=== PATIENT | female | born 1995 | race Caucasian/White ===

== ENCOUNTER 2016-11-17 10:25 | Emergency (ER) | payer OTHER ==
[~2016-11-17] VITALS: Ht 157.5 cm; Wt 104.3 kg
[2016-11-17] MEDS ORDERED: HYDROcodone/APAP 5/325MG 1 TAB TABLET PO ONE (11:30)
[2016-11-17 11:41] VITALS: BP 127/70
--- NOTE | 2016-11-17 12:14 | RAD ---
CT of the head without contrast, 11/17/2016: History: Headache The ventricles are within normal limits in size. There is no shift of the midline structures. There is no evidence of acute intracranial hemorrhage or mass effect. IMPRESSION: No acute intracranial abnormality is detected. PQRS Compliance Statement: One or more of the following individualized dose reduction techniques were utilized for this examination: 1. Automated exposure control 2. Adjustment of the mA and/or kV according to patient size 3. Use of iterative reconstruction technique
[2016-11-17] MEDS ORDERED: IBUP-1060 PO (12:21)
--- NOTE | 2016-11-17 12:21 | PHYS DOC ---
Past Medical History Past Medical History: No Pertinent History Past Surgical History: Cholecystectomy Additional Past Surgical Histo: R WRIST SX Alcohol Use: None Drug Use: None Adult General Chief Complaint Chief Complaint: HEADACHE HPI HPI Patient is a 21 year old female presents the ED complaining of headache 4 days. Patient states she went to [place] 2 days ago was given some medicine for her headache and has had no improvement. States she took the medicine one time and has not taken anything today. Describes the pain as sharp. Rates the pain as 9 out of 10. Complains of nausea. Denies head injury, neck injury, LOC, vision changes, vomiting, weakness, chest pain, fever or shortness of breath. Review of Systems Review of Systems Constitutional: Denies fever or chills [] Eyes: Denies change in visual acuity, redness, or eye pain [] HENT: Denies nasal congestion or sore throat [] Respiratory: Denies cough or shortness of breath [] Cardiovascular: No additional information not addressed in HPI [] GI: Complains of nausea Denies abdominal pain, vomiting, bloody stools or diarrhea [] : Denies dysuria or hematuria [] Musculoskeletal: Denies back pain or joint pain [] Integument: Denies rash or skin lesions [] Neurologic: Complains of headache. Denies focal weakness or sensory changes [] Endocrine: Denies polyuria or polydipsia [] Current Medications Current Medications Current Medications Medications (Trade) Dose Ordered Sig/[facility] Start Time Stop Time Status Last Admin Dose Admin Acetaminophen/ Butalbital/ Caffeine (Fioricet) 1 tab 1X ONCE 11/17/16 13:00 11/17/16 13:00 DC 11/17/16 12:52 1 TAB Acetaminophen/ Hydrocodone Bitart (Lortab 5/325) 1 tab 1X ONCE 11/17/16 11:30 11/17/16 11:41 DC 11/17/16 11:49 1 TAB Allergies Allergies Allergies Coded Allergies Type Severity Reaction Last Updated Verified No Known Drug Allergies 11/17/16 No Physical Exam Physical Exam Constitutional: Well developed, well nourished, no acute distress, non-toxic appearance. [] HENT: Normocephalic, atraumatic, bilateral external ears normal, oropharynx moist, no oral exudates, nose normal. [] Eyes: PERRLA, EOMI, conjunctiva normal, no discharge. [] Neck: Normal range of motion, no tenderness, supple, no stridor. [] Cardiovascular:Heart rate regular rhythm, no murmur [] Lungs & Thorax: Bilateral breath sounds clear to auscultation [] Abdomen: Bowel sounds normal, soft, no tenderness, no masses, no pulsatile masses. [] Skin: Warm, dry, no erythema, no rash. [] Back: No tenderness, no CVA tenderness. [] Extremities: No tenderness, no cyanosis, no clubbing, ROM intact, no edema. [] Neurologic: Alert and oriented X 3, normal motor function, normal sensory function, no focal deficits noted. [] Psychologic: Affect normal, judgement normal, mood normal. [] Current Patient Data Vital Signs Vital Signs Date Time Temp Pulse Resp B/P (MAP) Pulse Ox O2 Delivery O2 Flow Rate FiO2 11/17/16 11:49 18 99 Room Air 11/17/16 11:41 98.5 74 98.5 EKG EKG [] Radiology/Procedures Radiology/Procedures [] Patient requesting imaging of the brain. CT imaging completed. No acute abnormality. No focal neural deficits. Patient's headache improved. Recommended lumbar puncture. Patient refused. Discussed risks. Patient verbalizes understanding. No signs of nuchal rigidity or meningitis. Discussed follow-up with neurology in 1-2 days. Provided contact information/education. Discussed reasons to return to the ED. Patient understands and agrees with plan. Course & Med Decision Making Course & Med Decision Making Pertinent Labs and Imaging studies reviewed. (See chart for details) [] Dragon Disclaimer Dragon Disclaimer This electronic medical record was generated, in whole or in part, using a voice recognition dictation system. Departure Departure Impression: Primary Impression: Headache Disposition: HOME, SELF-CARE Condition: IMPROVED Patient Instructions: General Headache Without Cause Scripts Ibuprofen (IBUPROFEN) 800 Mg Tablet 800 MG PO PRN Q6HRS Y for INFLAMMATION, #20 TAB Prov: ANA MARÍA AVALOS 11/17/16 ANA MARÍA AVALOS Nov 17, 2016 12:21
[2016-11-17] MEDS ORDERED: BUTALB/APAP/CAFEIN 50/325/40MG TABLET. PO ONE (13:00)
== END 2016-11-17 12:50 | disposition home or self-care (01) ==
LOC: ER 10:25
DX: R51 Headache (principal); R11.0 Nausea
CPT/HCPCS: 70450; 99284-25

== ENCOUNTER 2016-11-30 09:26 | Emergency (ER) | payer OTHER ==
[~2016-11-30] VITALS: Ht 157.5 cm; Wt 104.3 kg
[~2016-11-30 09:26] MED LIST: IBUP-1060 PO
[2016-11-30 10:06] LABS: BILIRUBIN,URINE NEGATIVE (NEG); GLUCOSE,URINE NEGATIVE (NEG); NITRITE,URINE NEGATIVE (NEG); PH,URINE 5.5; PROTEIN,URINE NEGATIVE (NEG-TRACE); UROBILINOGEN,URINE 0.2 mg/dL (0.2 mg/dL)
--- NOTE | 2016-11-30 10:16 | PHYS DOC ---
Past Medical History Past Medical History: No Pertinent History Past Surgical History: Cholecystectomy Additional Past Surgical Histo: R WRIST SX Alcohol Use: None Drug Use: None Adult General Chief Complaint Chief Complaint: HEADACHE HPI HPI Patient is a 21 year old female with a history of headaches presents to the ED complaining of headache since last night. Seen in our ED on 11/[address] of the head was negative. Headache improved with meds in ED. Patient states headache same as previous headaches. Describes as sharp, rates as 8/10. Denies worst headache of life, chest pain, neck pain, shortness of breath, dizziness, weakness, n/v, abdominal pain or vision changes. Review of Systems Review of Systems Constitutional: Denies fever or chills [] Eyes: Denies change in visual acuity, redness, or eye pain [] HENT: Denies nasal congestion or sore throat [] Respiratory: Denies cough or shortness of breath [] Cardiovascular: No additional information not addressed in HPI [] GI: Denies abdominal pain, nausea, vomiting, bloody stools or diarrhea [] : Denies dysuria or hematuria [] Musculoskeletal: Denies back pain or joint pain [] Integument: Denies rash or skin lesions [] Neurologic: Complains of headache. Denies focal weakness or sensory changes [] Endocrine: Denies polyuria or polydipsia [] Current Medications Current Medications Current Medications Medications (Trade) Dose Ordered Sig/[facility] Start Time Stop Time Status Last Admin Dose Admin Ketorolac Tromethamine (Toradol Im) 60 mg 1X ONCE 11/30/16 10:30 11/30/16 10:31 DC 11/30/16 10:16 60 MG Lidocaine HCl (Xylocaine-Mpf 1% Vial) 4 ml 1X ONCE 11/30/16 10:30 11/30/16 10:31 DC 11/30/16 10:26 2 ML Ondansetron HCl (Zofran Odt) 4 mg 1X ONCE 11/30/16 10:30 11/30/16 10:31 DC 11/30/16 10:16 4 MG Allergies Allergies Allergies Coded Allergies Type Severity Reaction Last Updated Verified No Known Drug Allergies 11/17/16 No Physical Exam Physical Exam Constitutional: Well developed, well nourished, no acute distress, non-toxic appearance. [] HENT: Normocephalic, atraumatic, bilateral external ears normal, oropharynx moist, no oral exudates, nose normal. [] Eyes: PERRLA, EOMI, conjunctiva normal, no discharge. [] Neck: Normal range of motion, no tenderness, supple, no stridor. [] Cardiovascular:Heart rate regular rhythm, no murmur [] Lungs & Thorax: Bilateral breath sounds clear to auscultation [] Abdomen: Bowel sounds normal, soft, no tenderness, no masses, no pulsatile masses. [] Skin: Warm, dry, no erythema, no rash. [] Back: No tenderness, no CVA tenderness. [] Extremities: No tenderness, no cyanosis, no clubbing, ROM intact, no edema. [] Neurologic: Alert and oriented X 3, normal motor function, normal sensory function, no focal deficits noted. [] Psychologic: Affect normal, judgement normal, mood normal. [] Current Patient Data Vital Signs Vital Signs Date Time Temp Pulse Resp B/P (MAP) Pulse Ox O2 Delivery O2 Flow Rate FiO2 11/30/16 11:26 68 96 11/30/16 10:56 16 11/30/16 09:45 98.0 Room Air 98.0 Lab Values Laboratory Tests Test 11/30/16 09:55 11/30/16 09:59 Urine Collection Type Unknown Urine Color Yellow Urine Clarity Cloudy Urine pH 5.5 Urine Specific [place] 1.025 Urine Protein Negative mg/dL (NEG-TRACE) Urine Glucose (UA) Negative mg/dL (NEG) Urine Ketones (Stick) Negative mg/dL (NEG) Urine Blood Negative (NEG) Urine Nitrite Negative (NEG) Urine Bilirubin Negative (NEG) Urine Urobilinogen Dipstick 0.2 mg/dL (0.2 mg/dL) Urine Leukocyte Esterase Negative (NEG) Urine RBC Occ /HPF (0-2) Urine WBC 1-4 /HPF (0-4) Urine Squamous Epithelial Cells Many /LPF Urine Bacteria Mod /HPF (0-FEW) Urine Mucus Marked /LPF POC Urine HCG, Qualitative Hcg negative (Negative) EKG EKG [] Radiology/Procedures Radiology/Procedures [] Course & Med Decision Making Course & Med Decision Making Pertinent Labs and Imaging studies reviewed. (See chart for details) []Patient's headache improved with nebulized lidocaine. No focal neural deficits. States same headache as previous headaches Discussed follow-up with neurology in 1-2 days. Provided contact information/education. Discussed reasons to return to the ED. Patient understands and agrees with plan. Dragon Disclaimer Dragon Disclaimer This electronic medical record was generated, in whole or in part, using a voice recognition dictation system. Departure Departure Impression: Primary Impression: Headache Disposition: HOME, SELF-CARE Condition: IMPROVED Referrals: NO PCP (PCP) RACHEL RIVAS MD Patient Instructions: Migraine Headache Scripts Butalb/Acetaminophen/Caffeine ([id number]) 1 Each Capsule 1 EACH PO Q4-6HRS Y for HEADACHE, #15 CAP Prov: ANA MARÍA AVALOS 11/30/16 ANA MARÍA AVALOS Nov 30, 2016 10:16
[2016-11-30 10:25] LABS: BACTERIA,URINE MOD /HPF (0-FEW); RBC,URINE OCC /HPF (0-2); SQUAMOUS EPITHELIAL CELL,UR MANY /LPF
[2016-11-30] MEDS ORDERED: LIDOCAINE 1% PF 2 ML VIAL. NEB ONE (10:30)
[2016-11-30] MEDS ORDERED: KETOROLAC 60 MG/2 ML INJ. IM ONE (10:30)
[2016-11-30] MEDS ORDERED: ONDANSETRON ODT 4 MG TAB.RAPDIS. PO ONE (10:30)
[2016-11-30] MEDS ORDERED: BUTA1CAP57 PO (11:22)
[2016-11-30 11:26] VITALS: BP 120/67
== END 2016-11-30 11:30 | disposition home or self-care (01) ==
LOC: ER 09:26
DX: R51 Headache (principal)
CPT/HCPCS: 81001; 81025; 94640; 96372; 99283; J1885; Q0162

== ENCOUNTER 2017-01-18 19:19 | Emergency (ER) | payer OTHER ==
[~2017-01-18] VITALS: Ht 157.5 cm; Wt 104.3 kg
[~2017-01-18 19:19] MED LIST changes: +BUTA1CAP57 PO
[2017-01-18 20:03] VITALS: BP 140/70
[2017-01-18] MEDS ORDERED: NAPR-695 PO (20:51)
--- NOTE | 2017-01-18 20:52 | PHYS DOC ---
Past Medical History Past Medical History: No Pertinent History Past Surgical History: Cholecystectomy Additional Past Surgical Histo: R WRIST SX Alcohol Use: None Drug Use: None Adult General Chief Complaint Chief Complaint: ELBOW PROBLEM HPI HPI Patient is a 21 year old female who presents with mild left elbow pain that began today after she tripped on herself and fell. Patient denies any loss of consciousness. She states her pain is worse on flexion and extension on the pain is intermittent. Review of Systems Review of Systems Constitutional: Denies fever or chills [] Musculoskeletal: Left elbow pain Integument: Denies rash or skin lesions [] Neurologic: Denies headache, focal weakness or sensory changes [] All other systems were reviewed and found to be within normal limits, except as documented in this note. Allergies Allergies Allergies Coded Allergies Type Severity Reaction Last Updated Verified No Known Drug Allergies 11/17/16 No Physical Exam Physical Exam Constitutional: Well developed, well nourished, no acute distress, non-toxic appearance. [] Skin: Warm, dry, no erythema, no rash. [] Back: No tenderness, no CVA tenderness. [] Extremities: Left elbow with no obvious deformity, no bruising. No tenderness on palpation of the elbow. Full range of motion to the left elbow including flexion and extension of the elbow and plantar flexion and dorsiflexion of the left forearm. +2 left radial pulse. Adequate radial medial and ulnar sensation to the left forearm. Cap refill less than 2 seconds the left fingers. Neurologic: Alert and oriented X 3, normal motor function, normal sensory function, no focal deficits noted. [] Psychologic: Affect normal, judgement normal, mood normal. [] Current Patient Data Vital Signs Vital Signs Date Time Temp Pulse Resp B/P (MAP) Pulse Ox O2 Delivery O2 Flow Rate FiO2 01/18/17 20:03 98.2 82 18 99 Room Air 98.2 EKG EKG [] Radiology/Procedures Radiology/Procedures [] Course & Med Decision Making Course & Med Decision Making Pertinent Labs and Imaging studies reviewed. (See chart for details) Patient is in the ED with left elbow pain after falling. Left elbow x-rays interpreted by Dr. Downey are negative for any acute findings. Discharged with naproxen. Ice elevation encouraged. Follow-up with orthopedic doctor in one week if pain continues. Dragon Disclaimer Dragon Disclaimer This electronic medical record was generated, in whole or in part, using a voice recognition dictation system. Departure Departure Impression: Primary Impression: Fall from standing Additional Impression: Left elbow contusion Disposition: 01 HOME, SELF-CARE Condition: STABLE Referrals: NO PCP (PCP) ROHINI AMOS MD follow up in one week Patient Instructions: Contusion, [id number], Fall Prevention and Home Safety Additional Instructions: You were seen with left elbow contusion. Ice elevate the extremity. Take the prescribed medicines as needed for pain. Follow-up with orthopedic doctor provided or your own doctor in 1-2 weeks if pain continues. Scripts Naproxen (NAPROXEN) 375 Mg Tablet 1 TAB PO BID, #30 TAB 0 Refills Prov: LUCIA BROWN APRN 01/18/17 Problem Qualifiers Primary Impression: Fall from standing Encounter type: initial encounter Qualified Codes: W19.XXXA - Unspecified fall, initial encounter Additional Impression: Left elbow contusion Encounter type: initial encounter Qualified Codes: S50.02XA - Contusion of left elbow, initial encounter LUCIA BROWN APRN Jan 18, 2017 20:52
--- NOTE | 2017-01-19 08:06 | RAD ---
Left elbow, 3 views, 01/18/2017: History: Fall, pain No fracture or dislocation is identified. There is no radiographic evidence of an elbow joint effusion. IMPRESSION: No acute abnormality is detected.
== END 2017-01-18 21:02 | disposition home or self-care (01) ==
LOC: ER 19:19
DX: S50.02XA Contusion of left elbow, initial encounter (principal); W01.0XXA Fall on same level from slipping, tripping and stumbling without subsequent striking against object, initial encounter; Y93.89 Activity, other specified; Y99.8 Other external cause status; Y92.89 Other specified places as the place of occurrence of the external cause
CPT/HCPCS: 73080; 99284

== ENCOUNTER 2021-03-06 14:24 | Emergency (ER) | payer OTHER ==
[~2021-03-06] VITALS: Ht 157.5 cm; Wt 113.6 kg
[~2021-03-06 14:24] MED LIST changes: +AZIT250T6 PO; +BACI28.34 TP; +BENZ100C PO; +CEPH-264 PO; +FLUC150T PO; +HYDR-2761 PO; +IBUP-1007 PO; +LEVO750T5 PO; +LIDO1ADH78 TP; +NAPR-695 PO; +ONDA4TAB12 PO; +ONDA4TAB7 PO; +OXYC-325 PO; +OXYC1TAB22 PO; +TAMS0.4C97 PO
[2021-03-06] MEDS ORDERED: IBUPROFEN 200 MG TABLET. PO ONE (14:45)
[2021-03-06] MEDS ORDERED: PSEUDOEPHEDRINE 30 MG TABLET. PO PRN (14:45)
[2021-03-06 15:00] LABS: INFLUENZA A PATIENT NEGATIVE (NEGATIVE); INFLUENZA B PATIENT NEGATIVE (NEGATIVE)
--- NOTE | 2021-03-06 15:50 | PHYS DOC ---
Past Medical History Past Medical History: No Pertinent History Past Surgical History: Cholecystectomy Additional Past Surgical Histo: R WRIST SX Smoking Status: Never Smoker Alcohol Use: None Drug Use: None General Adult EDM: Chief Complaint: Congestion HPI: HPI: Patient is a 25-year-old female presents to the emergency department complaining of waking up yesterday with a stuffy nose, denies fever or chills, denies throat discomfort, denies cough, denies ear pain or throat pain. Patient denies nausea, abdominal pain, denies other physical complaints or physical concerns. Patient reports she tried Vicks sinus medication yesterday with minimal relief. Patient reports her last menstrual cycle ended 3 days ago with normal duration of flow, denies taking prescription medications at home, denies allergies to medications. Patient reports she sees Dr. Dang for primary care. Patient denies receiving the COVID-19 virus vaccination series or flu vaccination for this season. Review of Systems: Review of Systems: 14 body systems of review of systems have been reviewed. See HPI for pertinent positives and negative responses, otherwise all other systems are negative, nonpertinent or noncontributory. Constitutional: Negative except as outlined in HPI above. Skin: Negative except as outlined in HPI above. Eyes: Negative except as outlined in HPI above. HENT: Negative except as outlined in HPI above. Respiratory: Negative except as outlined in HPI above. Cardiovascular: Negative except as outlined in HPI above. GI: Negative except as outlined in HPI above. : Negative except as outlined in HPI above. Musculoskeletal: Negative except as outlined in HPI above. Integument: Negative except as outlined in HPI above. Neurologic: Negative except as outlined in HPI above. Endocrine: Negative except as outlined in HPI above. Lymphatic: Negative except as outlined in HPI above. Psychiatric: Negative except as outlined in HPI above. Heart Score: C/O Chest Pain: No Risk Factors: Risk Factors: DM, Current or recent (<one month) smoker, HTN, HLP, family history of CAD, obesity. Risk Scores: Score 0 - 3: 2.5% MACE over next 6 weeks - Discharge Home Score 4 - 6: 20.3% MACE over next 6 weeks - Admit for Clinical Observation Score 7 - 10: 72.7% MACE over next 6 weeks - Early Invasive Strategies Current Medications: Current Medications Medications (Trade) Dose Ordered Sig/[facility] Start Time Stop Time Status Last Admin Dose Admin Ibuprofen (Motrin) 600 mg 1X ONCE 03/06/21 14:45 03/06/21 14:46 DC 03/06/21 14:55 600 MG Pseudoephedrine HCl (Sudafed) 60 mg PRN Q6HRS PRN 03/06/21 14:45 03/06/21 15:00 60 MG Allergies: Allergies: Allergies Coded Allergies Type Severity Reaction Last Updated Verified No Known Drug Allergies 11/17/16 No Physical Exam: PE: Constitutional: Well developed, well nourished, no acute distress, non-toxic appearance. 25-year-old female in no apparent distress. HENT: Normocephalic, atraumatic. Oropharynx moist, pink, no deep tissue infectious process appreciated, patient speaking in normal voice tones, no uvular edema or deviation, no laryngeal edema, scant postnasal drip, bilateral nasal turbinates boggy without drainage, bilateral TMs within normal limits, intact, no lymphadenopathy of the head or neck appreciated. Eyes: Conjunctiva normal, no discharge. Neck: Normal range of motion, no stridor. Cardiovascular: No cyanosis appreciated, distal cap refill less than 2 seconds. Lungs & Thorax: Patient is in no respiratory distress, no audible adventitious lung sounds appreciated. Lung sounds clear to auscultate all lung hannah. Abdomen: Nontender, no abnormalities noted. Skin: Warm, dry, no erythema, no rash. Back: No tenderness, no deformities. Extremities: No tenderness, no cyanosis, no clubbing, ROM intact, no edema. Neurologic: Alert and oriented X 3, normal motor function, normal sensory function, no focal deficits noted. Psychologic: Affect normal, judgement normal, mood normal. Current Patient Data: Labs: Laboratory Tests Test 03/06/21 14:35 Influenza Type A Antigen Negative (NEGATIVE) Influenza Type B Antigen Negative (NEGATIVE) SARS-CoV-2 Antigen (Rapid) Negative (NEGATIVE) Vital Signs: Vital Signs Date Time Temp Pulse Resp B/P (MAP) Pulse Ox O2 Delivery O2 Flow Rate FiO2 03/06/21 14:53 84 18 153/92 (112) 97 Room Air 03/06/21 14:25 97.7 97.7 EKG: EKG: [] Radiology/Procedures: Radiology/Procedures: [] Course & Med Decision Making: Course & Med Decision Making Pertinent Labs and Imaging studies reviewed. (See chart for details) 25-year-old female, vital signs reviewed, presents emergency department concerning stuffy nose at home. Physical examination consistent with sinusitis most likely viral component, will order rapid COVID and flu testing, COVID testing for PCR. We will give 60 mg Sudafed while labs are pending. Patient's rapid flu and COVID testing negative, upon reevaluation of the crystal ent, patient reports some relief with medication given, discussed with patient using [id number] sinus congestion medications, stay well-hydrated, follow- up with primary care this next week for ongoing symptoms, discussed with patient negative flu and COVID findings, PCR is pending, patient gave verbal understanding of and is amenable to ED discharge planning. Discussed with the patient all findings and diagnostic testing as well as the need to follow-up with their primary care provider for further evaluation and treatment or return to the ED if any new or worsening symptoms. Strict return precautions were also discussed at length, the patient voiced understanding and agreement with the discharge planning. The patient was nontoxic in appearance, in no apparent distress, and hemodynamically stable at the time of disposition. Loggly Disclaimer: Loggly Disclaimer: This electronic medical record was generated, in whole or in part, using a voice recognition dictation system. Departure Departure Impression: Primary Impression: Sinusitis Qualified Codes: J01.00 - Acute maxillary sinusitis, unspecified Disposition: HOME / SELF CARE / HOMELESS Condition: GOOD Referrals: NO PCP (PCP) WARREN DANG MD Patient Instructions: Sinusitis Additional Instructions: You were seen today in the emergency department for a stuffy nose, your COVID and flu testing came back negative, you do have a COVID PCR test pending and results should be available within the next 24 to 48 hours. As we discussed, your sinusitis presentation is most likely viral, please treat with adequate fluid intake, you may treat with [id number] sinus medications. Please see your doctor this week for ongoing symptoms. Return turn to the emergency department for worsening symptoms or other concerns. Thank you for visiting our Emergency Department. It was a pleasure taking care of you today in the emergency department and we appreciate you trusting us with your care. If any additional problems come up don't hesitate to return to visit us. Please follow up with your primary care provider so they can plan additional care if needed and know about the problem that you had. If symptoms worsen come back to the Emergency Department. Any concerning symptoms that start such as chest pain, shortness of air, weakness or numbness on one side of the body, running high fevers or any other concerning symptoms return to the ER. ARNIE DOMINGUEZ APRN Mar 06, 2021 15:50
[2021-03-06 15:57] VITALS: BP 153/99
--- NOTE | 2021-03-07 17:32 | NUR ---
IP: Informed pt of negative covid test. Pt verbalized understanding.
== END 2021-03-06 16:02 | disposition home or self-care (01) ==
LOC: ER 14:24 → MERGE 14:24 → UNMERGE 14:24 → ER 16:02
DX: J01.00 Acute maxillary sinusitis, unspecified (principal); Z20.822 Contact with and (suspected) exposure to COVID-19
CPT/HCPCS: 87428; 99283; U0003; U0005

== ENCOUNTER 2021-05-29 00:41 | Emergency (ER) | payer OTHER ==
[~2021-05-29] VITALS: Ht 157.5 cm; Wt 113.6 kg
[2021-05-29 02:00] LABS: BASO % 1 % (0-3); EOS # 0.1 x10^3/uL (0.0-0.7); EOS % 2 % (0-3); HEMATOCRIT 34.1 % (36.0-47.0); HEMOGLOBIN 11.6 g/dL (12.0-15.5); LYMPH # 1.7 x10^3/uL (1.0-4.8); LYMPH % 25 % (24-48); MEAN CORPUSCULAR HEMOGLOBIN 28 pg (25-35); MEAN CORPUSCULAR HGB CONC 34 g/dL (31-37); MEAN CORPUSCULAR VOLUME 83 fL (79-100); MONO # 0.5 x10^3/uL (0.0-1.1); MONO % 8 % (0-9); NEUT # 4.4 x10^3/uL (1.8-7.7); NEUT % 65 % (31-73); PLATELET COUNT 238 x10^3/uL (140-400); RED BLOOD COUNT 4.14 x10^6/uL (3.50-5.40); RED CELL DISTRIBUTION WIDTH 13.9 % (11.5-14.5); WHITE BLOOD COUNT 6.7 x10^3/uL (4.0-11.0)
--- NOTE | 2021-05-29 02:07 | PHYS DOC ---
Past Medical History Past Medical History: Kidney Stone Past Surgical History: Cholecystectomy Additional Past Surgical Histo: R WRIST SX Smoking Status: Never Smoker Alcohol Use: None Drug Use: None General Adult EDM: Chief Complaint: BACK PAIN - NO INJURY HPI: HPI: Patient is a 25 year old female who present to ER for evaluation of low back pain. Patient has chronic low back pain to me going on for a while. Patient denies any injury. Patient said tonight the pain became more severe so she came here for evaluation. Patient denies any bowel or bladder incontinence. Patient also complaining abdominal pain. Patient said before she came home mom gave her 2 Flexeril to take. Patient denies any fever, no bowel or bladder incontinence. Review of Systems: Review of Systems: Constitutional: Denies fever or chills. [] Eyes: Denies change in visual acuity. [] HENT: Denies nasal congestion or sore throat. [] Respiratory: Denies cough or shortness of breath. [] Cardiovascular: Denies chest pain or edema. [] GI: Positive for abdominal pain, no nausea, vomiting, bloody stools or diarrhea. [] : Denies dysuria. [] Musculoskeletal: Positive for low back pain. Integument: Denies rash. [] Neurologic: Denies headache, focal weakness or sensory changes. [] Endocrine: Denies polyuria or polydipsia. [] Lymphatic: Denies swollen glands. [] Psychiatric: Denies depression or anxiety. [] Heart Score: C/O Chest Pain: N/A Risk Factors: Risk Factors: DM, Current or recent (<one month) smoker, HTN, HLP, family history of CAD, obesity. Risk Scores: Score 0 - 3: 2.5% MACE over next 6 weeks - Discharge Home Score 4 - 6: 20.3% MACE over next 6 weeks - Admit for Clinical Observation Score 7 - 10: 72.7% MACE over next 6 weeks - Early Invasive Strategies Allergies: Allergies: Allergies Coded Allergies Type Severity Reaction Last Updated Verified No Known Drug Allergies 11/17/16 No Physical Exam: PE: Constitutional: Well developed, well nourished, no acute distress, non-toxic appearance. Obese HENT: Normocephalic, atraumatic, bilateral external ears normal, oropharynx moist, no oral exudates, nose normal. [] Eyes: PERRLA, EOMI, conjunctiva normal, no discharge. [] Neck: Normal range of motion, no tenderness, supple, no stridor. [] Cardiovascular:Heart rate regular rhythm, no murmur [] Lungs & Thorax: Bilateral breath sounds clear to auscultation [] Abdomen: Bowel sounds normal, soft, no tenderness, no masses, no pulsatile negrito s. [] Skin: Warm, dry, no erythema, no rash. [] Back: Tender to palpation at L3, L4-L5 area Extremities: No tenderness, no cyanosis, no clubbing, ROM intact, no edema. [] Neurologic: Alert and oriented X 3, normal motor function, normal sensory function, no focal deficits noted. [] Psychologic: Affect normal, judgement normal, mood normal. [] Current Patient Data: Labs: Laboratory Tests Test 05/29/21 01:45 05/29/21 01:47 05/29/21 01:49 Urine Collection Type Unknown Urine Color (Auto) Yellow Urine Turbidity Clear Urine pH (Auto) 5.0 Urine Specific [place] 1.027 Urine Protein (Auto) Negative mg/dL Urine Glucose (Auto)(UA) Negative mg/dL Urine Ketones (Auto) Trace mg/dL Urine Blood (Auto) Negative Urine Nitrite Negative Urine Bilirubin (Auto) Negative Urine Urobilinogen (Auto) Normal mg/dL Urine Leukocyte Esterase (Auto) Small Urine RBC 0 /HPF Urine WBC 1-4 /HPF Urine Squamous Epithelial Cells Mod /LPF Urine Bacteria Few /HPF Urine Hyaline Casts Few /HPF Urine Mucus Mod /LPF Bedside Urine HCG, Qualitative Hcg negative White Blood Count 6.7 x10^3/uL Red Blood Count 4.14 x10^6/uL Hemoglobin 11.6 g/dL Hematocrit 34.1 % Mean Corpuscular Volume 83 fL Mean Corpuscular Hemoglobin 28 pg Mean Corpuscular Hemoglobin Concent 34 g/dL Red Cell Distribution Width 13.9 % Platelet Count 238 x10^3/uL Neutrophils (%) (Auto) 65 % Lymphocytes (%) (Auto) 25 % Monocytes (%) (Auto) 8 % Eosinophils (%) (Auto) 2 % Basophils (%) (Auto) 1 % Neutrophils # (Auto) 4.4 x10^3/uL Lymphocytes # (Auto) 1.7 x10^3/uL Monocytes # (Auto) 0.5 x10^3/uL Eosinophils # (Auto) 0.1 x10^3/uL Basophils # (Auto) 0.0 x10^3/uL Sodium Level 137 mmol/L Potassium Level 3.5 mmol/L Chloride Level 99 mmol/L Carbon Dioxide Level 27 mmol/L Anion Gap 11 Blood Urea Nitrogen 13 mg/dL Creatinine 0.9 mg/dL Estimated GFR (Cockcroft-Gault) 75.1 BUN/Creatinine Ratio 14 Glucose Level 146 mg/dL Calcium Level 9.4 mg/dL Total Bilirubin 0.6 mg/dL Aspartate Amino Transf (AST/SGOT) 34 U/L Alanine Aminotransferase (ALT/SGPT) 53 U/L Alkaline Phosphatase 53 U/L Total Protein 8.0 g/dL Albumin 3.6 g/dL Albumin/Globulin Ratio 0.8 Lipase 86 U/L Current Medications Medications (Trade) Dose Ordered Sig/Ameena Route PRN Reason Start Time Stop Time Status Last Admin Dose Admin Ketorolac Tromethamine (Toradol 30mg Vial) 30 mg 1X ONCE IVP 05/29/21 02:15 05/29/21 02:16 DC Iohexol (Omnipaque 300 Mg/ml) 75 ml 1X ONCE PO 05/29/21 02:30 05/29/21 02:31 DC 05/29/21 02:34 Info (CONTRAST GIVEN -- Rx MONITORING) 1 each PRN DAILY PRN MC SEE COMMENTS 05/29/21 02:30 05/31/21 02:29 Laboratory Tests Test 05/29/21 01:47 POC Urine HCG, Qualitative Hcg negative (Negative) EKG: EKG: [] Radiology/Procedures: Radiology/Procedures: [][facility] [address] [place] [address] IMAGING REPORT Signed PATIENT: VIKTOR FRAGA ACCOUNT: [id number] : 1995 LOCATION: ER AGE: 25 SEX: F EXAM STATUS: REG ER ORD. PHYSICIAN: TREVOR JARQUIN DO REASON: abdominal pain, back pain;OMNI 300, 75ML PROCEDURE: CT ABD PELV W/ IV CONTRST ONLY CT lumbar spine without contrast. CT abdomen and pelvis with contrast. PQRS statement: CT scans at this facility use dose reduction including either automated exposure control, iterative reconstructions, and /or weight based radiation dosing via mA and kV modification when appropriate to reduce radiation dose to as low as reasonably achievable. HISTORY: Low back pain. Abdominal pain. Contrast: 75 mL Omnipaque [address] lumbar spine findings: Lumbar vertebral body height and alignment is intact. No fracture. No spondylolysis defect. Mild posterior disc space narrowing with shallow disc bulges at L4-L5 and L5-S1 there may be a disc herniation at L5-S1, mild spinal canal stenosis is possible. Paraspinal tissues are normal. CT abdomen findings: Lung bases and bones are unremarkable. Hyperdense liver may be fatty. Mild prominence of the common bile duct typical after cholecystectomy. Pancreas, adrenals, kidneys and spleen are unremarkable. The pancreas is normal. No obstruction or inflammation of the GI tract. No abdominal fluid or adenopathy. CT pelvis findings: Uterus, ovaries, bladder, rectum and bones are unremarkable. No pelvic fluid or adenopathy. IMPRESSION: 1. No acute osseous injury of the lumbar spine. Lower lumbar disc disease. See above. 2. No acute abnormality in the abdomen or pelvis. The appendix is normal. Electronically signed by: Brandi Tobias MD (05/29/2021 3:04 AM) [facility] DICTATED and SIGNED BY: BRANDI TOBIAS MD DATE: 05/29/21256 Course & Med Decision Making: Course & Med Decision Making Pertinent Labs and Imaging studies reviewed. (See chart for details) Patient is a 25-year-old female who presented to ER for evaluation of abdominal pain and low back pain. CT scan of the abdomen pelvis with lumbar spine show some disc problem L3-L4 L5-S1 area. Patient will be given pain medication to take at home, she did follow-up with her family physician for outpatient r eferral to pain specialist Dane Disclaimer: Dane Disclaimer: This electronic medical record was generated, in whole or in part, using a voice recognition dictation system. Departure Departure Impression: Primary Impression: Degenerative disc disease, lumbar Disposition: HOME / SELF CARE / HOMELESS Condition: IMPROVED Referrals: NO PCP (PCP) Please follow up with [facility] this week. [address], [address] [place] [address] Phone number: [phone] Patient Instructions: Degenerative Disk Disease Additional Instructions: Thank you for visiting our Emergency Department. We appreciate you trusting us with your care. If any additional problems come up don't hesitate to return to visit us. Please follow up with your primary care provider so they can plan additional care if needed and know about the problem that you had. If symptoms worsen come back to the Emergency Department. Any concerning symptoms that start such as chest pain, shortness of air, weakness or numbness on one side of the body, running high fevers or any other concerning symptoms return to the ER. Scripts Tramadol Hcl (TRAMADOL HCL) 50 Mg Tablet 50 MG PO Q6HRS PRN for PAIN, #10 TAB Prov: TREVOR JARQUIN DO 05/29/21 TREVOR JARQUIN DO May 29, 2021 02:07
[2021-05-29 02:09] LABS: BACTERIA,URINE FEW /HPF (0-FEW); RBC,URINE 0 /HPF (0-2)
[2021-05-29 02:10] LABS: HYALINE CASTS, URINE FEW /HPF
[2021-05-29 02:14] LABS: CALCIUM 9.4 mg/dL (8.5-10.1); CREATININE 0.9 mg/dL (0.6-1.0); GFR 75.1; POTASSIUM 3.5 mmol/L (3.5-5.1)
[2021-05-29] MEDS ORDERED: KETOROLAC 30 MG/ML VIAL. IVP ONE (02:15)
[2021-05-29 02:19] LABS: ALBUMIN 3.6 g/dL (3.4-5.0); ALBUMIN/GLOBULIN RATIO 0.8 (1.0-1.7); TOTAL BILIRUBIN 0.6 mg/dL (0.2-1.0)
[2021-05-29] MEDS ORDERED: IOHEXOL 300 MG/ML 100ML VIAL. PO ONE (02:30)
[2021-05-29] MEDS ORDERED: CONTRAST GIVEN. MC PRN (02:30)
--- NOTE | 2021-05-29 03:07 | RAD ---
CT lumbar spine without contrast. CT abdomen and pelvis with contrast. PQRS statement: CT scans at this facility use dose reduction including either automated exposure cont rol, iterative reconstructions, and /or weight based radiation dosing via mA and kV modification when appropriate to reduce radiation dose to as low as reasonably achievable. HISTORY: Low back pain. Abdominal pain. Contrast: 75 mL Omnipaque [address] lumbar spine findings: Lumbar vertebral body height and alignment is intact. No fracture. No spond ylolysis defect. Mild posterior disc space narrowing with shallow disc bulges at L4-L5 and L5-S1 ther e may be a disc herniation at L5-S1, mild spinal canal stenosis is possible. Paraspinal tissues are n ormal. CT abdomen findings: Lung bases and bones are unremarkable. Hyperdense liver may be fatty. Mild promi nence of the common bile duct typical after cholecystectomy. Pancreas, adrenals, kidneys and spleen a re unremarkable. The pancreas is normal. No obstruction or inflammation of the GI tract. No abdominal fluid or adenopathy. CT pelvis findings: Uterus, ovaries, bladder, rectum and bones are unremarkable. No pelvic fluid or a denopathy. IMPRESSION: 1. No acute osseous injury of the lumbar spine. Lower lumbar disc disease. See above. 2. No acute abnormality in the abdomen or pelvis. The appendix is normal. Electronically signed by: Berny Tobias MD (05/29/2021 3:04 AM) [facility]
[2021-05-29] MEDS ORDERED: TRAM50TA PO (03:38)
[2021-05-29 03:40] VITALS: BP 101/63
== END 2021-05-29 03:57 | disposition home or self-care (01) ==
LOC: ER 00:41
DX: M51.36 Other intervertebral disc degeneration, lumbar region (principal); Z90.49 Acquired absence of other specified parts of digestive tract; Z87.442 Personal history of urinary calculi
CPT/HCPCS: 36415; 74177; 80053; 81001; 81025; 83690; 85025; 87086; 87147; 96374; 99285; J1885; Q9967